=== PATIENT | female | born 1990 | race African-American/Black ===

== ENCOUNTER 2018-03-31 08:52 | Emergency (ER) | payer BC ==
[~2018-03-31] VITALS: Ht 170.2 cm; Wt 74.0 kg
[2018-03-31 09:32] VITALS: BP 145/94
[2018-03-31] MEDS ORDERED: IBUPROFEN 600MG TABLET PO ONE (10:45)
== END 2018-03-31 11:26 | disposition home or self-care (01) ==
LOC: ER 09:12
DX: M79.641 Pain in right hand (principal); M54.2 Cervicalgia; F12.10 Cannabis abuse, uncomplicated; Z87.891 Personal history of nicotine dependence
CPT/HCPCS: 73130; 81025; 99283